=== PATIENT | male | born 1945 | race Caucasian/White ===

== ENCOUNTER 2016-11-23 17:25 | Inpatient (IN) | payer OTHER ==
[~2016-11-23] VITALS: Ht 182.9 cm; Wt 97.0 kg
[2016-11-23 17:37] VITALS: Ht 182.9 cm; Wt 97.0 kg
[2016-11-23] MEDS ORDERED: ACETAMINOPHEN 325 MG TAB PO STA (18:09)
[2016-11-23] MEDS ORDERED: SODIUM CHLORIDE 0.9% 1L BAG IV* STA (18:09)
[2016-11-23] MEDS ORDERED: PIPER-TAZO 3.375 GM IV (PMX) 100 ML IVPB STA (18:09)
[2016-11-23] MEDS ORDERED: VANCOMYCIN 1 GM (PMX) 250 ML IVPB ONE (18:30)
[2016-11-23 18:55] LABS: BASOPHIL # 0.1 10^3/ul (0.0-0.1); BASOPHILS % 0.5 % (0.0-2.0); EOSINOPHILS % 0.1 % (0.0-7.0); HEMATOCRIT 37.8 % (42.0-52.0); HEMOGLOBIN 11.6 g/dl (14.0-18.0); LYMPHOCYTES # 0.8 10^3/ul (0.8-2.9); LYMPHOCYTES % 7.7 % (15.0-51.0); MEAN CORPUSCULAR HEMOGLOBIN 23.6 pg (29.0-33.0); MEAN CORPUSCULAR HGB CONC 30.7 g/dl (32.0-37.0); MEAN CORPUSCULAR VOLUME 76.8 fl (82.0-101.0); MEAN PLATELET VOLUME 9.4 fl (7.4-10.4); MONOCYTE # 0.7 10^3/ul (0.3-0.9); MONOCYTES % 6.4 % (0.0-11.0); NEUTROPHIL # 8.8 10^3/ul (1.6-7.5); NEUTROPHILS % 84.7 % (39.0-77.0); PLATELET COUNT 224 10^3/UL (140-415); RED BLOOD COUNT 4.92 10^6/ul (4.70-6.10); RED CELL DISTRIBUTION WIDTH 15.5 % (11.5-14.5); WHITE BLOOD COUNT 10.4 10^3/ul (4.8-10.8)
--- NOTE | 2016-11-23 18:56 | ERA ---
ER Documentation Chief Complaint Date/Time DATE: 11/23/16 TIME: 18:53 Chief Complaint Complains of a fever x 3 days HPI Patient is a 71-year-old male with HIV who presents with a facial infection. The patient has a face and nose infection. Started a few days ago but was worse today. He went to his infectious disease doctor Dr. Jacobs at the [facility] today and she was concerned about the infection and wanted him admitted to the hospital. The patient had a fever of 101. The patient has pain with palpation of his nose. The patient was given a penicillin shot in the office by Dr. Jacobs. she was requesting a CT scan of the face to rule out abscess or HIV lymphoma. ROS All systems reviewed and are negative except as per history of present illness. Allergies Allergies: Coded Allergies: No Known Allergy (Unverified , 11/23/16) PMhx/Soc Anesthesia Reaction: No Hx Neurological Disorder: No Hx Respiratory Disorders: Yes (COPD) Hx Cardiac Disorders: No Hx Psychiatric Problems: No Hx Miscellaneous Medical Probl: Yes (Hx of resolved liver failure, HIV T-Cell count 470) Hx Alcohol Use: No Hx Substance Use: No Hx Tobacco Use: No Smoking Status: Unknown if ever smoked FmHx Family History: No diabetes Physical Exam Vitals Vital Signs Date Time Temp Pulse Resp B/P Pulse Ox O2 Delivery O2 Flow Rate FiO2 11/23/16 17:37 101.0 97 20 133/67 97 Physical Exam Const: Facial cellulitis Head: Atraumatic Eyes: Normal Conjunctiva ENT: Swelling of the nose with induration consistent with cellulitis Neck: Full range of motion..~ No meningismus. Resp: Clear to auscultation bilaterally Cardio: Regular rate and rhythm, no murmurs Abd: Soft, non tender, non distended. Normal bowel sounds Skin: Nasal and facial cellulitis Back: No midline or flank tenderness Ext: No cyanosis, or edema Neur: Awake and alert Psych: Normal Mood and Affect Results 24 hrs Current Medications Medications (Trade) Dose Ordered Sig/Fátima Route PRN Reason Start Time Stop Time Status Last Admin Dose Admin Sodium Chloride (NS) 3,010 ml BOLUS OVER 2 HOURS STAT IV* 11/23/16 18:09 11/23/16 18:12 DC 11/23/16 18:27 Acetaminophen 650 mg 650 mg ONCE STAT PO 8/11/17 18:09 11/23/16 18:12 DC 11/23/16 18:28 Vancomycin HCl 250 ml @ 125 mls/hr ONCE ONCE IVPB 11/23/16 18:30 11/23/16 20:29 Piperacillin Sod/ Tazobactam Sod (Zosyn 3.375gm/ 100 ml (Pmx)) 100 ml @ 200 mls/hr ONCE STAT IVPB 11/23/16 18:09 11/23/16 18:38 DC 11/23/16 18:37 Ondansetron HCl (Zofran Inj) 4 mg BRIDGE ORDER PRN IV NAUSEA AND/OR VOMITING 11/23/16 19:00 11/24/16 18:59 Acetaminophen (Tylenol Tab) 650 mg ER BRIDGE PRN PO MILD PAIN/FEVER 11/23/16 19:00 11/24/16 18:59 Procedures/MDM CT scan of the face is pending at this time. EKG pending at this time. Patient is a 71-year-old male who presents with what appears to be an acute facial cellulitis with nasal cellulitis. The patient will have a CT scan of the face to rule out abscess. The patient is febrile and tachycardic and will require IV antibiotics especially given his age and HIV status. The patient was given vancomycin and Zosyn empirically. The patient will be given a 30 mm/ kg fluid bolus. At this point I doubt true sepsis. I spoke with Dr. Diamond from the panel team for admission. Departure Diagnosis: Primary Impression: Facial cellulitis Additional Impression: Fever Qualified Code: R50.9 - Fever, unspecified fever cause Condition: SABRINA Euceda MD Nov 23, 2016 18:56
[2016-11-23] MEDS ORDERED: ACETAMINOPHEN 325 MG TAB PO PRN ×2 (19:00→20:30)
[2016-11-23] MEDS ORDERED: ONDANSETRON 4 MG INJ IV PRN ×2 (19:00→20:30)
[2016-11-23 19:03] LABS: ADD UMIC YES; UR ASCORBIC ACID NEGATIVE (NEGATIVE); UR BILIRUBIN (Dip) NEGATIVE (NEGATIVE); UR BLOOD (Dip) NEGATIVE (NEGATIVE); UR CLARITY SLIGHTLY CLOUDY (CLEAR); UR COLOR AMBER (YELLOW); UR GLUCOSE (Dip) NEGATIVE (NEGATIVE); UR KETONES (Dip) NEGATIVE (NEGATIVE); UR LEUKOCYTE ESTERASE (Dip) NEGATIVE Leu/ul (NEGATIVE); UR MUCUS MANY /HPF (NONE SEEN); UR NITRITE (Dip) NEGATIVE (NEGATIVE); UR RBC 1 /HPF (0-5); UR SPECIFIC GRAVITY (Dip) 1.024 (1.003-1.030); UR TOTAL PROTEIN (Dip) 1+ mg/dl (NEGATIVE); UR UROBILINOGEN (Dip) 1+ mg/dL (NEGATIVE)
[2016-11-23 19:16] LABS: INR 1.1; PROTIME 14.2 Sec (12.2-14.2); PT RATIO 1.1
[2016-11-23 19:21] LABS: ALANINE AMINOTRANSFERASE 29 IU/L (13-69); ALBUMIN 4.5 g/dl (3.3-4.9); ALKALINE PHOSPHATASE 58 IU/L (42-121); ANION GAP 12 (8-16); ASPARTATE AMINO TRANSFERASE 26 IU/L (15-46); BILIRUBIN,INDIRECT 0.8 mg/dl (0-1.1); BILIRUBIN,TOTAL 0.8 mg/dl (0.2-1.3); BLOOD UREA NITROGEN 13 mg/dl (7-20); CALCIUM 9.7 mg/dl (8.4-10.2); CARBON DIOXIDE 27 mmol/L (21-31); CHLORIDE 100 mmol/L (97-110); GLUCOSE 93 mg/dl (70-220); POTASSIUM 4.4 mmol/L (3.5-5.1); SODIUM 135 mmol/L (135-144); TOTAL PROTEIN 7.7 g/dl (6.1-8.1)
[2016-11-23 19:24] VITALS: PULSE 91
[2016-11-23] MEDS ORDERED: IBUPROFEN 600 MG TAB PO ONE (19:30)
[2016-11-23 19:39] LABS: TROPONIN-I < 0.012 ng/ml (0.00-0.12)
[2016-11-23] MEDS ORDERED: SOD CHLORIDE 0.9% 100 ML ONE (20:01)
[2016-11-23] MEDS ORDERED: IOHEXOL 300MG/ML 150 ML BTL ONE (20:01)
[2016-11-23] MEDS ORDERED: LORA10TA3 PO (20:21)
[2016-11-23] MEDS ORDERED: BUPR300T48 PO (20:21)
[2016-11-23] MEDS ORDERED: ASPI-664 PO (20:22)
[2016-11-23] MEDS ORDERED: EMTR1TAB11 PO (20:22)
[2016-11-23] MEDS ORDERED: RALT400T4 PO (20:29)
[2016-11-23] MEDS ORDERED: morphine 2 MG INJ IV PRN (20:30)
[2016-11-23] MEDS ORDERED: BISACODYL (EC) 5 MG TAB PO PRN (20:30)
[2016-11-23] MEDS ORDERED: HYDROCODONE/APAP (5/325) TAB PO PRN (20:30)
[2016-11-23] MEDS ORDERED: NACL 0.9% 3 ML SYG IV SCH (20:30)
[2016-11-23] MEDS ORDERED: DOCUSATE SODIUM 100 MG CAP PO PRN (20:30)
[2016-11-23] MEDS ORDERED: VANCOMYCIN IV PER PHARMACY XX SCH (20:30)
[2016-11-23] MEDS ORDERED: CALC600T11 PO (20:32)
[2016-11-23] MEDS ORDERED: CALCIUM PO (20:33)
[2016-11-23 20:40] VITALS: TEMP 99.3
--- NOTE | 2016-11-23 21:02 | RADRPT ---
PROCEDURE: CT scan facial bones with contrast CLINICAL INDICATION: Facial pain and swelling. History of oral surgery and HIV. TECHNIQUE: A CT of the facial bones was performed with intravenous contrast. Coronal and sagittal reformats were generated. 80 cc intravenous Omnipaque 300 were administered during the examination w ithout complication. CTDIvol: 57.38 mGy. DLP: 1133.28 mGy-cm. One or more of the following dose reduction techniques were used: - Automated exposure control. - Adjustment of the mA and/or kV according to patient size. - Use of iterative reconstruction technique. COMPARISON: None available FINDINGS: There is diffuse subcutaneous fat infiltration and swelling along both sides of the face. No rim en hancing fluid collection is identified to suggest the presence of an abscess. The patient is nearly edentulous, with no periapical lucencies seen around the roots of the remaining maxillary dentition . There is no facial fracture. The intraorbital structures are normal. There is mucosal thickenin g and a fluid level in the left maxillary sinus. Osseous wall thickening is also noted along the lef t maxillary sinus. The nasal cavity is clear. No acute intracranial pathology is visualized. IMPRESSION: 1. Diffuse subcutaneous fat infiltration and swelling along both sides of the face. This is nonspe cific but could represent cellulitis or possibly an allergic reaction. No abscess is identified. 2. No CT evidence of an odontogenic infection or orbital cellulitis. 3. Fluid level in the left maxillary sinus, possibly representing acute sinusitis. There is also l eft maxillary sinus osseous wall thickening, indicative of chronic sinusitis. RPTAT: HTAR .George Castelan MD, Date Time Electronically viewed and signed by .George Castelan MD, MD on 11/23/2016 21:02 .R/
[2016-11-23] MEDS: FAMOTIDINE 20 MG TAB PO SCH (21:30)
[2016-11-23 23:27] VITALS: BP 114/70; RESP 18
[2016-11-24] MEDS: VANCOMYCIN 1.25 GM in SOD CHLORIDE 0.9% 250 ML IVPB SCH ×2 (03:26→15:00)
[2016-11-24 04:05] VITALS: BP 104/53; RESP 18
--- NOTE | 2016-11-24 04:05 | HP ---
Date/Time of Note Date/Time of Note DATE: 11/24/16 TIME: 03:53 Assessment/Plan VTE Prophylaxis VTE Prophylaxis Intervention: SCD's Assessment/Plan Chief Complaint/Hosp Course This is a 71-year-old male being admitted to the [facility] floor for: #1 facial cellulitis: CT scan shows:Diffuse subcutaneous fat infiltration and swelling along both sides of the face. This is nonspecific but could represent cellulitis or possibly an allergic reaction. No abscess is identified. At the current time we will treat with IV vancomycin and Zosyn. Will obtain ID consult. Patient did present with a fever. Tylenol for fevers #2 Cough: Lungs appear clear on examination. Will order a chest x-ray to further evaluate. He is already on antibiotics as per #1. We will continue to monitor this. #3 normocytic anemia: This could be secondary to anemia of chronic disease patient is HIV positive he also had a history of basal carcinoma. Will order iron studies. #4 HIV positive: We will check a CD4 count and HIV viral load. Will continue patient's home medications. Will consult ID. #5 anxiety: We will continue bupropion. #6 Fluid levels in the maxillary sinus: Seen on CAT scan this could represent acute sinusitis. Patient does have symptoms of cough, currently is already on Vanco and Zosyn. Will continue to follow this and consult ID. DVT and GI prophylaxis: SCD, acid santi Further treatment will be implemented as per the clinical course Problems: HPI/ROS Admit Date/Time Admit Date/Time Nov 23, 2016 at 18:33 Hx of Present Illness Chief complaint: Facial infection This is a 71-year-old male with HIV who presents with a facial infection. The patient has a face and nose infection. Started a few days ago but was worse today. He went to his infectious disease doctor Dr. Jacobs at the [facility] today and she was concerned about the infection and wanted him admitted to the hospital. The patient had a fever of 101. The patient has pain with palpation of his nose. The patient was given a penicillin shot in the office by Dr. Jacobs. she was requesting a CT scan of the face to rule out abscess or HIV lymphoma. Patient denies any nasal drainage at this time. He is had multiple surgeries to his his nose secondary to him having basal cell cancer. Denies any bleeding. He does report that he has had a cough for a couple of days as well. Denies any sputum. Denies any chest pain Allergies: NKDA Medications: See JUN ROS Const: As per HPI Eyes : No pain discharge or redness or change in visual acuity ENT: As per HPI Respiratory: As per HPI Cardiovascular: No chest pain, palpitation, PND, or edema GI : no change in appetite, abdominal pain, nausea, vomiting, diarrhea, constipation, or change in the color his stool Genitourinary: No dysuria, hematuria, flank pain , discharge or CVA tenderness Musculoskeletal: No joint pain, back pain, neck pain, restricted range of motion in neck or joints Skin: No rash, bruising or hives Neuro: No headache, dizziness, syncope, seizure, focal weakness Endocrine: No polyuria, polydipsia, temperature intolerance Psych: No hallucination, depression, anxiety or suicidal ideation PMH/Family/Social Past Medical History HIV positive, history of basal cell cancer of the nose, COPD Past Surgical History Multiple surgeries of the nose for basal cell treatment Family History Significant Family History: no pertinent family hx Social History Sexual orientation: Homosexual, sexually active with multiple partners Alcohol Use: none Smoking Status: Never smoker Drug Use: none Exam/Review of Systems Vital Signs Vitals Vital Signs Date Time Temp Pulse Resp B/P Pulse Ox O2 Delivery O2 Flow Rate FiO2 11/23/16 23:27 98.6 85 18 114/70 94 11/23/16 19:24 Room Air Intake and Output 11/23/16 11/23/16 11/24/16 15:00 23:00 07:00 Intake Total 100 ml Balance 100 ml Exam Exam General: Patient is well-developed male lying in bed in no acute distress HEENT: External swelling around the nose, erythema noted, palpable tenderness to palpation of the right side of the nose Neck: Supple with full range of motion. No rigidity or meningismus Chest: Nontender Lungs: Dry cough on examination, lungs clear to auscultation bilaterally, no rales or wheezes Heart: Normal S1-S2, Regular rhythm and rate. No murmur, S3, or S4 Abdomen: Soft , nontender, nondistended , bowel sounds are present. No guarding no rebound tenderness , No masses or organomegaly. No costovertebral temporal angle mass Extremities: Normal to inspection, no edema no cyanosis Neurologic: Normal mental status, speech normal, cranial nerves II through XII are intact, motor and sensory are intact, no focal weakness Skin: Erythema and swelling of the nose extending to parts of the face Additional Comments PROCEDURE: CT scan facial bones with contrast CLINICAL INDICATION: Facial pain and swelling. History of oral surgery and HIV. TECHNIQUE: A CT of the facial bones was performed with intravenous contrast. Coronal and sagittal reformats were generated. 80 cc intravenous Omnipaque 300 were administered during the examination without complication. CTDIvol: 57.38 mGy. DLP: 1133.28 mGy-cm. One or more of the following dose reduction techniques were used: - Automated exposure control. - Adjustment of the mA and/or kV according to patient size. - Use of iterative reconstruction technique. COMPARISON: None available FINDINGS: There is diffuse subcutaneous fat infiltration and swelling along both sides of the face. No rim enhancing fluid collection is identified to suggest the presence of an abscess. The patient is nearly edentulous, with no periapical lucencies seen around the roots of the remaining maxillary dentition. There is no facial fracture. The intraorbital structures are normal. There is mucosal thickening and a fluid level in the left maxillary sinus. Osseous wall thickening is also noted along the left maxillary sinus. The nasal cavity is clear. No acute intracranial pathology is visualized. IMPRESSION: 1. Diffuse subcutaneous fat infiltration and swelling along both sides of the face. This is nonspecific but could represent cellulitis or possibly an allergic reaction. No abscess is identified. 2. No CT evidence of an odontogenic infection or orbital cellulitis. 3. Fluid level in the left maxillary sinus, possibly representing acute sinusitis. There is also left maxillary sinus osseous wall thickening, indicative of chronic sinusitis. Labs Result Diagram: 11/23/16 1823 11/23/16 1823 Medications Medications Current Medications Ondansetron HCl (Zofran Inj) 4 mg Q6H PRN IV NAUSEA AND/OR VOMITING; Start 03/01 at 20:30 Acetaminophen (Tylenol Tab) 650 mg Q6H PRN PO PAIN LEVEL 1-3 OR FEVER; Start at 20:30 Acetaminophen/ Hydrocodone Bitart ([place] (5/325)) 1 tab Q6H PRN PO MODERATE PAIN LEVEL 4-6; Start 11/23/16 at 20:30 Morphine Sulfate (morphine) 2 mg Q4H PRN IV SEVERE PAIN LEVEL 7-10; Start 11/23 at 20:30 Docusate Sodium (Colace) 100 mg Q12H PRN PO CONSTIPATION; Start 11/23/16 at 20: 30 Bisacodyl (Dulcolax) 5 mg DAILY PRN PO CONSTIPATION; Start 11/23/16 at 20:30 Famotidine 20 mg 20 mg Q12 PO Last administered on 11/23/16 21:30; Admin Dose 20 MG; Start 11/23/16 at 21:00 Piperacillin Sod/ Tazobactam Sod 100 ml @ 200 mls/hr Q8 IVPB ; Start 11/24/16 at 06:00 Vancomycin HCl/ Sodium Chloride (Vancocin/NS) 250 ml @ 83.333 mls/ hr Q12H IVPB Last administered on 11/24/16 03:26; Admin Dose 83.333 MLS/HR; Start 03/31 at 03:00 SUSANNE LEONARD Nov 24, 2016 04:04
[2016-11-24 05:58] LABS: BASOPHIL # 0.1 10^3/ul (0.0-0.1); BASOPHILS % 0.7 % (0.0-2.0); EOSINOPHILS # 0.1 10^3/ul (0.0-0.5); EOSINOPHILS % 1.1 % (0.0-7.0); HEMATOCRIT 35.6 % (42.0-52.0); HEMOGLOBIN 10.5 g/dl (14.0-18.0); LYMPHOCYTES # 0.7 10^3/ul (0.8-2.9); LYMPHOCYTES % 10.1 % (15.0-51.0); MEAN CORPUSCULAR HEMOGLOBIN 23.3 pg (29.0-33.0); MEAN CORPUSCULAR HGB CONC 29.5 g/dl (32.0-37.0); MEAN CORPUSCULAR VOLUME 79.1 fl (82.0-101.0); MEAN PLATELET VOLUME 9.8 fl (7.4-10.4); MONOCYTE # 0.6 10^3/ul (0.3-0.9); MONOCYTES % 7.9 % (0.0-11.0); NEUTROPHIL # 5.8 10^3/ul (1.6-7.5); NEUTROPHILS % 79.6 % (39.0-77.0); PLATELET COUNT 180 10^3/UL (140-415); RED CELL DISTRIBUTION WIDTH 15.8 % (11.5-14.5); WHITE BLOOD COUNT 7.2 10^3/ul (4.8-10.8)
[2016-11-24] MEDS ORDERED: PIPER-TAZO 3.375 GM IV (PMX) 100 ML IVPB SCH (06:00)
[2016-11-24] MEDS: DIPHENHYDRAMINE 50 MG CAP PO PRN ×2 (06:07→18:31)
[2016-11-24 06:28] LABS: ALBUMIN 3.5 g/dl (3.3-4.9); ALBUMIN/GLOBULIN RATIO 1.25; BILIRUBIN,INDIRECT 0.4 mg/dl (0-1.1); BILIRUBIN,TOTAL 0.4 mg/dl (0.2-1.3); CALCIUM 8.7 mg/dl (8.4-10.2); CHOL/HDL RATIO 5.2 RATIO; CREATININE 1.01 mg/dl (0.61-1.24); MAGNESIUM 2.1 mg/dl (1.7-2.5); POTASSIUM 4.7 mmol/L (3.5-5.1); TOTAL PROTEIN 6.3 g/dl (6.1-8.1)
[2016-11-24 07:54] LABS: IRON 30 ug/dl (35-150)
[2016-11-24 08:03] LABS: TOTAL IRON BINDING CAPACITY 310 ug/dl (241-421)
[2016-11-24] MEDS: ASPIRIN (EC) 81 MG TAB PO SCH (08:29)
[2016-11-24] MEDS: FAMOTIDINE 20 MG TAB PO SCH ×2 (08:29→20:26)
[2016-11-24] MEDS: LORATADINE 10 MG TAB PO SCH (08:29)
[2016-11-24] MEDS: BUPROPION (XL) 150 MG TAB PO SCH (08:30)
[2016-11-24] MEDS: EMTRICITABINE/TENOFOVIR TAB PO SCH (08:30)
[2016-11-24 08:42] VITALS: BP 115/64; RESP 20
--- NOTE | 2016-11-24 08:59 | CONS ---
Date/Time of Note Date/Time of Note DATE: 11/24/16 TIME: 08:58 Consultation Date/Type/Reason Admit Date/Time Nov 23, 2016 at 18:33 Date of Consultation: Nov 24, 2016 Type of Consultation: ID Reason for Consultation Antibiotic management Social History Alcohol Use: none Smoking Status: Never smoker Drug Use: none Exam/Review of Systems Vital Signs Vitals Vital Signs Date Time Temp Pulse Resp B/P Pulse Ox O2 Delivery O2 Flow Rate FiO2 11/24/16 08:42 99.1 96 20 115/64 95 11/23/16 19:24 Room Air Intake and Output 11/23/16 11/23/16 11/24/16 15:00 23:00 07:00 Intake Total 100 ml 850 ml Balance 100 ml 850 ml Results Result Diagram: 11/24/16 0445 11/24/16 0445 Results 24 hrs Laboratory Tests Test 11/23/16 18:23 11/23/16 18:35 11/23/16 20:50 11/23/16 23:54 White Blood Count 10.4 Red Blood Count 4.92 Hemoglobin 11.6 L Hematocrit 37.8 L Mean Corpuscular Volume 76.8 L Mean Corpuscular Hemoglobin 23.6 L Mean Corpuscular Hemoglobin Concent 30.7 L Red Cell Distribution Width 15.5 H Platelet Count 224 Mean Platelet Volume 9.4 Neutrophils % 84.7 H Lymphocytes % 7.7 L Monocytes % 6.4 Eosinophils % 0.1 Basophils % 0.5 Nucleated Red Blood Cells % 0.0 Neutrophils # 8.8 H Lymphocytes # 0.8 Monocytes # 0.7 Eosinophils # 0.0 Basophils # 0.1 Nucleated Red Blood Cells # 0.0 Prothrombin Time 14.2 Prothrombin Time Ratio 1.1 INR International Normalized Ratio 1.10 Activated Partial Thromboplast Time 32.0 Sodium Level 135 Potassium Level 4.4 Chloride Level 100 Carbon Dioxide Level 27 Anion Gap 12 Blood Urea Nitrogen 13 Creatinine 1.10 Glucose Level 93 Lactic Acid Level 1.2 0.9 1.0 Calcium Level 9.7 Total Bilirubin 0.8 Direct Bilirubin 0.00 Indirect Bilirubin 0.8 Aspartate Amino Transf (AST/SGOT) 26 Alanine Aminotransferase (ALT/SGPT) 29 Alkaline Phosphatase 58 Troponin I < 0.012 Total Protein 7.7 Albumin 4.5 Globulin 3.20 Albumin/Globulin Ratio 1.40 Urine Color AZALIA Urine Clarity SLIGHTLY CLOUDY A Urine pH 6.0 Urine Specific [place] 1.024 Urine Ketones NEGATIVE Urine Nitrite NEGATIVE Urine Bilirubin NEGATIVE Urine Urobilinogen 1+ H Urine Leukocyte Esterase NEGATIVE Urine Microscopic RBC 1 Urine Microscopic WBC 3 Urine Mucus MANY A Urine Hemoglobin NEGATIVE Urine Glucose NEGATIVE Urine Total Protein 1+ H Test 11/24/16 04:45 White Blood Count 7.2 # Red Blood Count 4.50 L Hemoglobin 10.5 L Hematocrit 35.6 L Mean Corpuscular Volume 79.1 L Mean Corpuscular Hemoglobin 23.3 L Mean Corpuscular Hemoglobin Concent 29.5 L Red Cell Distribution Width 15.8 H Platelet Count 180 Mean Platelet Volume 9.8 Neutrophils % 79.6 H Lymphocytes % 10.1 L Monocytes % 7.9 Eosinophils % 1.1 Basophils % 0.7 Nucleated Red Blood Cells % 0.0 Neutrophils # 5.8 Lymphocytes # 0.7 L Monocytes # 0.6 Eosinophils # 0.1 Basophils # 0.1 Nucleated Red Blood Cells # 0.0 Sodium Level 143 Potassium Level 4.7 Chloride Level 103 Carbon Dioxide Level 28 Anion Gap 17 H Blood Urea Nitrogen 14 Creatinine 1.01 Glucose Level 86 Hemoglobin A1c 5.3 Calcium Level 8.7 Magnesium Level 2.1 Iron Level 30 L Total Iron Binding Capacity 310 Percent Iron Saturation 10 L Total Bilirubin 0.4 Direct Bilirubin 0.00 Indirect Bilirubin 0.4 Aspartate Amino Transf (AST/SGOT) 19 Alanine Aminotransferase (ALT/SGPT) 27 Alkaline Phosphatase 48 Total Protein 6.3 # Albumin 3.5 # Globulin 2.80 Albumin/Globulin Ratio 1.25 Triglycerides Level 84 Cholesterol Level 142 LDL Cholesterol, Calculated 98 HDL Cholesterol 27 L Cholesterol/HDL Ratio 5.2 Thyroid Stimulating Hormone (TSH) 1.000 Medications Medications Current Medications Ondansetron HCl (Zofran Inj) 4 mg Q6H PRN IV NAUSEA AND/OR VOMITING; Start 03/01 at 20:30 Acetaminophen (Tylenol Tab) 650 mg Q6H PRN PO PAIN LEVEL 1-3 OR FEVER; Start at 20:30 Acetaminophen/ Hydrocodone Bitart ([place] (5/325)) 1 tab Q6H PRN PO MODERATE PAIN LEVEL 4-6; Start 11/23/16 at 20:30 Morphine Sulfate (morphine) 2 mg Q4H PRN IV SEVERE PAIN LEVEL 7-10; Start 11/23 at 20:30 Docusate Sodium (Colace) 100 mg Q12H PRN PO CONSTIPATION; Start 11/23/16 at 20: 30 Bisacodyl (Dulcolax) 5 mg DAILY PRN PO CONSTIPATION; Start 11/23/16 at 20:30 Famotidine 20 mg 20 mg Q12 PO Last administered on 11/24/16 08:29; Admin Dose 20 MG; Start 11/23/16 at 21:00 Vancomycin HCl/ Sodium Chloride (Vancocin/NS) 250 ml @ 83.333 mls/ hr Q12H IVPB Last administered on 11/24/16 03:26; Admin Dose 83.333 MLS/HR; Start 03/31 at 03:00 Aspirin (Halfprin) 81 mg DAILY PO Last administered on 11/24/16 08:29; Admin Dose 81 MG; Start 11/24/16 at 09:00 Bupropion HCl (Wellbutrin Xl) 300 mg DAILY PO Last administered on 11/24/16 08 :30; Admin Dose 300 MG; Start 11/24/16 at 09:00 Loratadine (Claritin) 10 mg DAILY PO Last administered on 11/24/16 08:29; Admin Dose 10 MG; Start 11/24/16 at 09:00 Emtricitabine/ Tenofovir (Truvada) 1 tab DAILY PO Last administered on 08:30; Admin Dose 1 TAB; Start 11/24/16 at 09:00 Miscellaneous Information 1 tab BID XX ; Start 11/24/16 at 09:00; Status UNV Diphenhydramine HCl 50 mg 50 mg Q6H PRN PO ITCHING Last administered on 06:07; Admin Dose 50 MG; Start 11/24/16 at 04:30 Cefazolin Sodium (Ancef 1 Gm/50 ml (Pmx)) 50 ml @ 100 mls/hr Q6 IVPB ; Start at 12:00; Status UNV LUCILA DAVIES MD Nov 24, 2016 08:59
[2016-11-24] MEDS: CEFAZOLIN 1 GM/50 ML (PMX) 50 ML IVPB SCH ×2 (11:06→20:26)
[2016-11-24] MEDS: RALTEGRAVIR 400 MG TAB PO SCH ×2 (11:06→20:26)
--- NOTE | 2016-11-24 13:43 | CONS ---
DATE OF ADMISSION: 11/23/2016 DATE OF CONSULTATION: 11/24/2016 REASON FOR CONSULTATION: Antibiotic management. HISTORY OF PRESENT ILLNESS: Roland Fields is a 71-year-old male, who comes in with history of HIV and facial infection. This started a few days ago but got worse on 02/24/2017. He went to his infectious disease doctor, Dr. Jacobs, in [facility] and she was concerned about infection and sent him to the hospital. His temperature was 101. He is given a penicillin shot by Dr. Jacobs, and she was requesting CT scan of the face to rule out abscess or HIV lymphoma. He denies any nasal discharge. He has had multiple surgeries to his nose secondary to basal cell carcinoma. He denies any bleeding. He has had a cough for a few days. A CT scan showed diffuse subcutaneous fat infiltration and swelling along both sides of the face. This was nonspecific and could represent cellulitis or possibly an allergic reaction. The patient is on vancomycin and Zosyn. On admission his white count was 10.4, hemoglobin 11.6, hematocrit 37.8, platelet count 224,000. BUN 13 and creatinine was 1.10. PAST MEDICAL HISTORY: Positive for HIV and basal cell carcinoma of the nose, as well as COPD. FAMILY HISTORY: Noncontributory. SOCIAL HISTORY: He is [place]. He is sexually active with multiple partners. He does not smoke, drink, or abuse drugs. ALLERGIES: NONE TO PENICILLIN, SULFA, OR FOODS. MEDICATIONS: Per chart. REVIEW OF SYSTEMS: As per HPI. PHYSICAL EXAMINATION: GENERAL: Patient is a well-developed, well-nourished male, alert, responsive, in no acute distress. VITAL SIGNS: Stable. He is afebrile currently, his T-max is 101. SKIN: Without generalized rash. HEENT: Within normal limits. Except for his nose, which is erythematous and has some tenderness to palpation, especially on the right side of the nose. NECK: Supple. Lymph nodes nonpalpable. CHEST: Decreased breath sounds at the bases. HEART: Without murmur or gallop. ABDOMEN: Soft, nontender, without organosplenomegaly or masses. EXTREMITIES: Without cyanosis, clubbing, or edema. RECTAL: Exam is deferred. GENITALIA: Exam is deferred. NEUROLOGIC: No focal neurological abnormality. IMPRESSION AND PLAN: 1. The patient is human immunodeficiency virus positive. He also has cellulitis of the nose. He is on appropriate antibiotics. His HIV medications. We note that he is on Truvada and he is on raltegravir or Isentress one tablet twice daily. 2. His HIV, RNA by PCR, and CD4 count panels are also ordered, and he has had blood cultures and urine cultures. I concur with this regimen. I will dictate my findings to the hospitalist. Dictated By: Titi Madrigal MD JD/[email or web address]/dianna /Document#: [id number]
[2016-11-24 14:56] VITALS: BP 94/47; RESP 20
--- NOTE | 2016-11-24 17:37 | PN ---
Date/Time of Note Date/Time of Note DATE: 11/24/16 TIME: 17:33 Assessment/Plan VTE Prophylaxis VTE Prophylaxis Intervention: SCD's Assessment/Plan Assessment/Plan 71 yo M with HIV well controlled on HAART admitted for facial cellulitis. Imaging without evidence of abscess or underlying malignancy given diffuse erythema, looks like strep based infection. Pt denies any preceeding nodule, and there is no evidence of purulence PLAN empiric vanc/ancef MRSA swab to eval for colonization will likely stop vanc in AM if continues to improve consider changing to PO keflex in 1-2 days cont HAART Subjective 24 Hr Interval Summary Free Text/Dictation Pt reports he has been stable on his HAART regimen for some time. Regarding his facial cellulitis, reports that the degree of erythema has improved since admission and mild swelling appears to now be spreading to under both eyes Exam/Review of Systems Vital Signs Vitals Vital Signs Date Time Temp Pulse Resp B/P Pulse Ox O2 Delivery O2 Flow Rate FiO2 11/24/16 14:56 98.8 62 20 94/47 94 11/23/16 19:24 Room Air Intake and Output 11/23/16 11/23/16 11/24/16 15:00 23:00 07:00 Intake Total 100 ml 850 ml Balance 100 ml 850 ml Exam nad mild induration and mild erythema of nasal bridge and under eye area, no involvement above eyes or past distal aspect of pt's eyes bl no mrg lungs clear abd soft labs noted Results Result Diagram: 11/24/16 0445 11/24/16 0445 Results 24 hrs Laboratory Tests Test 11/23/16 18:23 11/23/16 18:35 11/23/16 20:50 11/23/16 23:54 White Blood Count 10.4 Red Blood Count 4.92 Hemoglobin 11.6 L Hematocrit 37.8 L Mean Corpuscular Volume 76.8 L Mean Corpuscular Hemoglobin 23.6 L Mean Corpuscular Hemoglobin Concent 30.7 L Red Cell Distribution Width 15.5 H Platelet Count 224 Mean Platelet Volume 9.4 Neutrophils % 84.7 H Lymphocytes % 7.7 L Monocytes % 6.4 Eosinophils % 0.1 Basophils % 0.5 Nucleated Red Blood Cells % 0.0 Neutrophils # 8.8 H Lymphocytes # 0.8 Monocytes # 0.7 Eosinophils # 0.0 Basophils # 0.1 Nucleated Red Blood Cells # 0.0 Prothrombin Time 14.2 Prothrombin Time Ratio 1.1 INR International Normalized Ratio 1.10 Activated Partial Thromboplast Time 32.0 Sodium Level 135 Potassium Level 4.4 Chloride Level 100 Carbon Dioxide Level 27 Anion Gap 12 Blood Urea Nitrogen 13 Creatinine 1.10 Glucose Level 93 Lactic Acid Level 1.2 0.9 1.0 Calcium Level 9.7 Total Bilirubin 0.8 Direct Bilirubin 0.00 Indirect Bilirubin 0.8 Aspartate Amino Transf (AST/SGOT) 26 Alanine Aminotransferase (ALT/SGPT) 29 Alkaline Phosphatase 58 Troponin I < 0.012 Total Protein 7.7 Albumin 4.5 Globulin 3.20 Albumin/Globulin Ratio 1.40 Urine Color [place]AL[place] Urine Clarity SLIGHTLY CLOUDY A Urine pH 6.0 Urine Specific [place] 1.024 Urine Ketones NEGATIVE Urine Nitrite NEGATIVE Urine Bilirubin NEGATIVE Urine Urobilinogen 1+ H Urine Leukocyte Esterase NEGATIVE Urine Microscopic RBC 1 Urine Microscopic WBC 3 Urine Mucus MANY A Urine Hemoglobin NEGATIVE Urine Glucose NEGATIVE Urine Total Protein 1+ H Test 11/24/16 04:45 White Blood Count 7.2 # Red Blood Count 4.50 L Hemoglobin 10.5 L Hematocrit 35.6 L Mean Corpuscular Volume 79.1 L Mean Corpuscular Hemoglobin 23.3 L Mean Corpuscular Hemoglobin Concent 29.5 L Red Cell Distribution Width 15.8 H Platelet Count 180 Mean Platelet Volume 9.8 Neutrophils % 79.6 H Lymphocytes % 10.1 L Monocytes % 7.9 Eosinophils % 1.1 Basophils % 0.7 Nucleated Red Blood Cells % 0.0 Neutrophils # 5.8 Lymphocytes # 0.7 L Monocytes # 0.6 Eosinophils # 0.1 Basophils # 0.1 Nucleated Red Blood Cells # 0.0 Sodium Level 143 Potassium Level 4.7 Chloride Level 103 Carbon Dioxide Level 28 Anion Gap 17 H Blood Urea Nitrogen 14 Creatinine 1.01 Glucose Level 86 Hemoglobin A1c 5.3 Calcium Level 8.7 Magnesium Level 2.1 Iron Level 30 L Total Iron Binding Capacity 310 Percent Iron Saturation 10 L Total Bilirubin 0.4 Direct Bilirubin 0.00 Indirect Bilirubin 0.4 Aspartate Amino Transf (AST/SGOT) 19 Alanine Aminotransferase (ALT/SGPT) 27 Alkaline Phosphatase 48 Total Protein 6.3 # Albumin 3.5 # Globulin 2.80 Albumin/Globulin Ratio 1.25 Triglycerides Level 84 Cholesterol Level 142 LDL Cholesterol, Calculated 98 HDL Cholesterol 27 L Cholesterol/HDL Ratio 5.2 Thyroid Stimulating Hormone (TSH) 1.000 Medications Medications Current Medications Ondansetron HCl (Zofran Inj) 4 mg Q6H PRN IV NAUSEA AND/OR VOMITING; Start 03/01 at 20:30 Acetaminophen (Tylenol Tab) 650 mg Q6H PRN PO PAIN LEVEL 1-3 OR FEVER Last administered on 11/24/16 16:13; Admin Dose 650 MG; Start 11/23/16 at 20:30 Acetaminophen/ Hydrocodone Bitart ([place] (5/325)) 1 tab Q6H PRN PO MODERATE PAIN LEVEL 4-6; Start 11/23/16 at 20:30 Morphine Sulfate (morphine) 2 mg Q4H PRN IV SEVERE PAIN LEVEL 7-10; Start 11/23 at 20:30 Docusate Sodium (Colace) 100 mg Q12H PRN PO CONSTIPATION; Start 11/23/16 at 20: 30 Bisacodyl (Dulcolax) 5 mg DAILY PRN PO CONSTIPATION; Start 11/23/16 at 20:30 Famotidine 20 mg 20 mg Q12 PO Last administered on 11/24/16 08:29; Admin Dose 20 MG; Start 11/23/16 at 21:00 Vancomycin HCl/ Sodium Chloride (Vancocin/NS) 250 ml @ 83.333 mls/ hr Q12H IVPB Last administered on 11/24/16 15:00; Admin Dose 83.333 MLS/HR; Start 03/31 at 03:00 Aspirin (Halfprin) 81 mg DAILY PO Last administered on 11/24/16 08:29; Admin Dose 81 MG; Start 11/24/16 at 09:00 Bupropion HCl (Wellbutrin Xl) 300 mg DAILY PO Last administered on 11/24/16 08 :30; Admin Dose 300 MG; Start 11/24/16 at 09:00 Loratadine (Claritin) 10 mg DAILY PO Last administered on 11/24/16 08:29; Admin Dose 10 MG; Start 11/24/16 at 09:00 Emtricitabine/ Tenofovir (Truvada) 1 tab DAILY PO Last administered on 08:30; Admin Dose 1 TAB; Start 11/24/16 at 09:00 Miscellaneous Medication (Isentress) 400 mg BID PO Last administered on 11:06; Admin Dose 400 MG; Start 11/24/16 at 10:00 Diphenhydramine HCl 50 mg 50 mg Q6H PRN PO ITCHING Last administered on 06:07; Admin Dose 50 MG; Start 11/24/16 at 04:30 Cefazolin Sodium (Ancef 1 Gm/50 ml (Pmx)) 50 ml @ 100 mls/hr Q6 IVPB Last administered on 11/24/16 11:06; Admin Dose 100 MLS/HR; Start 11/24/16 at 12:00 Miscellaneous Information (*Rx Drug Level Order Reminder*) VANCOMYCIN TROUGH AT 1400 ONCE ONCE XX ; Start 11/25/16 at 14:00; Stop 11/25/16 at 14:01 ROBBY COLE MD Nov 24, 2016 17:36
[2016-11-24] MEDS: DIPHENHYDRAMINE 50 MG INJ IV PRN (18:39)
[2016-11-24 20:48] VITALS: BP 132/73; RESP 18
[2016-11-24] MEDS ORDERED: AMMONIUM LACTATE 12% 225 GM LOT TOP PRN (22:00)
[2016-11-24] MEDS ORDERED: HYDROCORTISONE 1% 28 GM CR TOP PRN (22:00)
[2016-11-25] MEDS: DIPHENHYDRAMINE 50 MG INJ IV PRN ×3 (00:45→20:39)
[2016-11-25] MEDS: CEFAZOLIN 1 GM/50 ML (PMX) 50 ML IVPB SCH ×5 (01:05→23:59)
--- NOTE | 2016-11-25 01:13 | RADRPT ---
PROCEDURE: XR Chest. CLINICAL INDICATION: Cough. Right lower rib pain TECHNIQUE: PA and lateral chest x-ray. COMPARISON: None. FINDINGS: The lungs are hyperexpanded. There is a paucity of lung markings in the upper lung zones. There is flattening of the hemidiaphragms. The lungs are otherwise clear. There is no evidence of pleural effusion. No pneumothorax identified. The cardiomediastinal silhouette is unremarkable. The osseous structures are unremarkable. The soft tissues are within normal limits. IMPRESSION: 1. No acute disease is seen in the chest. 2. Hyperexpanded lungs with flattening hemidiaphragms, suggesting changes of COPD. RPTAT: HLDM .Maxime Lujan MD, MD Date Time Electronically viewed and signed by .Maxime Lujan MD, on 11/25/2016 01:13 .M/
[2016-11-25 02:00] VITALS: BP 116/62; RESP 18
[2016-11-25] MEDS: VANCOMYCIN 1.25 GM in SOD CHLORIDE 0.9% 250 ML IVPB SCH ×2 (03:03→15:29)
[2016-11-25 06:32] LABS: CREATININE 0.95 mg/dl (0.61-1.24)
[2016-11-25 08:22] VITALS: BP 108/58; RESP 18
[2016-11-25] MEDS: BUPROPION (XL) 150 MG TAB PO SCH (09:11)
[2016-11-25] MEDS: LORATADINE 10 MG TAB PO SCH (09:12)
[2016-11-25] MEDS: EMTRICITABINE/TENOFOVIR TAB PO SCH (09:12)
[2016-11-25] MEDS: ASPIRIN (EC) 81 MG TAB PO SCH (09:12)
[2016-11-25] MEDS: RALTEGRAVIR 400 MG TAB PO SCH ×2 (09:12→20:39)
[2016-11-25] MEDS: FAMOTIDINE 20 MG TAB PO SCH (09:12)
[2016-11-25 14:57] VITALS: BP 124/58; RESP 18
--- NOTE | 2016-11-25 17:41 | PN ---
Date/Time of Note Date/Time of Note DATE: 11/25/16 TIME: 17:38 Assessment/Plan VTE Prophylaxis VTE Prophylaxis Intervention: SCD's Lines/Catheters IV Catheter Type (from Nrsg): Peripheral IV Assessment/Plan Assessment/Plan Assessment/Plan 71 yo M with HIV well controlled on HAART admitted for facial cellulitis. Imaging without evidence of abscess or underlying malignancy given diffuse erythema, looks like strep based infection. Pt denies any preceding nodule, and there is no evidence of purulence PLAN empiric vanc/ancef MRSA swab to eval for colonization STOP VANC consider changing to PO keflex tomorrow cont HAART Subjective 24 Hr Interval Summary Free Text/Dictation facial erythema further improved Exam/Review of Systems Vital Signs Vitals Vital Signs Date Time Temp Pulse Resp B/P Pulse Ox O2 Delivery O2 Flow Rate FiO2 11/25/16 14:57 98.2 92 18 124/58 92 11/23/16 19:24 Room Air Intake and Output 11/24/16 11/24/16 11/25/16 15:00 23:00 07:00 Intake Total 50 ml 1340 ml 1300 ml Balance 50 ml 1340 ml 1300 ml Exam nad improved erythema over nose, upper cheeks no mrg lungs clear abd soft Results Result Diagram: 11/24/16 0445 11/25/16 0442 Results 24 hrs Laboratory Tests Test 11/25/16 04:42 11/25/16 14:00 Blood Urea Nitrogen 10 Creatinine 0.95 Vancomycin Level Trough 10.4 Medications Medications Current Medications Ondansetron HCl (Zofran Inj) 4 mg Q6H PRN IV NAUSEA AND/OR VOMITING; Start 03/01 at 20:30 Acetaminophen (Tylenol Tab) 650 mg Q6H PRN PO PAIN LEVEL 1-3 OR FEVER Last administered on 11/24/16t 16:13; Admin Dose 650 MG; Start 11/23/16 at 20:30 Acetaminophen/ Hydrocodone Bitart ([place] (5/325)) 1 tab Q6H PRN PO MODERATE PAIN LEVEL 4-6; Start 11/23/16 at 20:30 Morphine Sulfate (morphine) 2 mg Q4H PRN IV SEVERE PAIN LEVEL 7-10; Start 11/23 at 20:30 Docusate Sodium (Colace) 100 mg Q12H PRN PO CONSTIPATION; Start 11/23/16 at 20: 30 Bisacodyl (Dulcolax) 5 mg DAILY PRN PO CONSTIPATION; Start 11/23/16 at 20:30 Famotidine 20 mg 20 mg Q12 PO Last administered on 11/25/16 09:12; Admin Dose 20 MG; Start 11/23/16 at 21:00 Vancomycin HCl/ Sodium Chloride (Vancocin/NS) 250 ml @ 83.333 mls/ hr Q12H IVPB Last administered on 11/25/16 15:29; Admin Dose 83.333 MLS/HR; Start 03/31 at 03:00 Aspirin (Halfprin) 81 mg DAILY PO Last administered on 11/25/16 09:12; Admin Dose 81 MG; Start 11/24/16 at 09:00 Bupropion HCl (Wellbutrin Xl) 300 mg DAILY PO Last administered on 11/25/16 09 :11; Admin Dose 300 MG; Start 11/24/16 at 09:00 Loratadine (Claritin) 10 mg DAILY PO Last administered on 11/25/16 09:12; Admin Dose 10 MG; Start 11/24/16 at 09:00 Emtricitabine/ Tenofovir (Truvada) 1 tab DAILY PO Last administered on 09:12; Admin Dose 1 TAB; Start 11/24/16 at 09:00 Miscellaneous Medication 400 mg 400 mg BID PO Last administered on 11/25/16 09 :12; Admin Dose 400 MG; Start 11/24/16 at 10:00 Cefazolin Sodium (Ancef 1 Gm/50 ml (Pmx)) 50 ml @ 100 mls/hr Q6 IVPB Last administered on 11/25/16 11:09; Admin Dose 100 MLS/HR; Start 11/24/16 at 12:00 Diphenhydramine HCl (Benadryl) 50 mg Q6H PRN IV itching Last administered on 11:11; Admin Dose 50 MG; Start 11/24/16 at 19:00 Hydrocortisone (Hydrocortisone 1% Cr) 1 applic BID PRN TOP ITCHING Last administered on 11/25/16 00:45; Admin Dose 1 APPLIC; Start 11/24/16 at 22:00 Ammonium Lactate (Lac-Hydrin 12% Lotion) 1 applic TID PRN TOP ITCHING; Start at 22:00 ROBBY COLE MD Nov 25, 2016 17:41
--- NOTE | 2016-11-25 19:51 | PN ---
DATE: 11/25/2016 SUBJECTIVE DATA: No acute changes, patient is alert, feels better, looks comfortable, no fevers. Microbiology: Blood cultures remain negative. Antimicrobials: Ancef, vancomycin. PHYSICAL EXAMINATION: GENERAL: Well developed, elderly white male, who is alert, in no distress. HEENT: Head atraumatic, normocephalic. Sclera anicteric. The patient has significant erythema on his nasal breech and around eyes, a little bit on the forehead and more on the right side of the face, per patient improved. Buccal mucosa pale and pink. NECK: Supple. CHEST: Chest rise symmetrical. Breath sounds clear. HEART: S1, S2. ABDOMEN: Soft. Bowel sounds present. EXTREMITIES: Without cyanosis, edema. ASSESSMENT: 1. Facial cellulitis, improving. 2. History of human immunodeficiency virus, controlled with antiretrovirals. 3. Anemia. PLAN: The patient remains stable. Cellulitis improving, continue present care, antibiotics, DUBOSE, await for clinical improvement. Dictated By: Lindsey Pizarro NP /jammie/rob /Document#: [id number] IESHA
[2016-11-25 20:37] VITALS: BP 122/67; RESP 18
--- NOTE | 2016-11-26 01:35 | RADRPT ---
PROCEDURE: XR ribs . CLINICAL INDICATION: Left rib pain. TECHNIQUE: AP and oblique views of the bilateral ribs were obtained. COMPARISON: Chest series dated 11/24/2016 FINDINGS: The bone mineralization is normal. There is no acute fracture or subluxation. The soft tissues are unremarkable. IMPRESSION: No acute fracture. RPTAT: [facility] Physician Ryan Date Time Electronically viewed and signed by Teresa Roth Physician on 11/26/2016 01:35 RS/
[2016-11-26 03:12] VITALS: BP 111/68; RESP 18
[2016-11-26] MEDS: CEFAZOLIN 1 GM/50 ML (PMX) 50 ML IVPB SCH ×2 (05:16→12:55)
[2016-11-26 09:03] VITALS: BP 115/65; RESP 20
[2016-11-26] MEDS: BUPROPION (XL) 150 MG TAB PO SCH (09:35)
[2016-11-26] MEDS: EMTRICITABINE/TENOFOVIR TAB PO SCH (09:35)
[2016-11-26] MEDS: ASPIRIN (EC) 81 MG TAB PO SCH (09:35)
[2016-11-26] MEDS: RALTEGRAVIR 400 MG TAB PO SCH (09:35)
[2016-11-26] MEDS: LORATADINE 10 MG TAB PO SCH (09:35)
[2016-11-26 14:54] VITALS: BP 111/72; RESP 20
[2016-11-26 14:59] LABS: LYMPHOCYTE - % CD4 (HELPER) 36 % (30-61); LYMPHOCYTE - %CD8 (SUPPRESSOR) 33 % (12-42); LYMPHOCYTE - ABSOLUTE CD4 315 cells/uL (490-1740); LYMPHOCYTE - ABSOLUTE CD8 286 cells/uL (180-1170)
--- NOTE | 2016-11-26 15:03 | PDOCDIS ---
Discharge Instructions CONDITION Patient Condition: Stable HOME CARE INSTRUCTIONS: Special Diet: Regular ACTIVITY: Activity Restrictions: Slowly Increase Activity FOLLOW UP/APPOINTMENTS Follow-up Plan Please take your medications as prescribed. Please follow-up with her primary care doctor in the clinic in the next 1 week. JARON HERRERA Nov 26, 2016 15:03
[2016-11-26] MEDS ORDERED: CEPH-443 PO (15:04)
--- NOTE | 2016-11-26 15:07 | DS ---
Date/Time of Note Date/Time of Note DATE: 11/26/16 TIME: 15:05 Discharge Summary Admission/Discharge Info Admit Date/Time Nov 23, 2016 at 18:33 Discharge Date/Time Discharge Diagnosis #1 facial cellulitis: Improved on antibiotics #2 Cough resolve #3 normocytic anemia: Likely microcytic-hemoglobin stable, monitor #4 HIV positive on HAART meds #5 anxiety: We will continue bupropion. #6 Fluid levels in the maxillary sinus: Seen on CAT scan this could represent acute sinusitis. Resolved Patient Condition: Stable Hospital Course 71-year-old male with HIV who presents with a facial infection. The patient has a face and nose infection. Started a few days ago but was worse today. He went to his infectious disease doctor Dr. Jacobs at the [facility] today and she was concerned about the infection and wanted him admitted to the hospital. The patient had a fever of 101 admission. The patient has pain with palpation of his nose. The patient was given a penicillin shot in the office by Dr. Jacobs. she was requesting a CT scan of the face to rule out abscess or HIV lymphoma. Patient denies any nasal drainage at this time. He is had multiple surgeries to his his nose secondary to him having basal cell cancer. Patient was admitted to [facility] floor, placed on antibiotics. Seen by infectious disease team who concurred. Over the course of his hospital stay his facial redness symptoms improved. He was able to ambulate, tolerated p.o. diet. He complained of some left rib pain, x-rays were negative for any signs of any rib fractures. He has been afebrile for at least the last 24 hours, will be discharged home today in improved condition. See below for full discharge medication list, including Keflex 500 mg 3 times daily for 5 more days to complete treatment. Home Meds Active Scripts Cephalexin* (Keflex*) 500 Mg Capsule, 500 MG PO Q8 for 5 Days, #15 CAP Prov:VERONICA HERRERAP Yaima. 11/26/16 Reported Medications [Calcium] No Conflict Check, 1 TAB PO DAILY 11/23/16 Raltegravir Potassium* (Isentress*) Unknown Strength Tablet, 1 TAB PO BID, TAB 11/23/16 Emtricitabine-Tenofovir* (Truvada*) Unknown Strength Tablet, 1 TAB PO DAILY, TAB 8/11/17 Aspirin* (Aspirin* EC) 81 Mg Tablet.dr, 81 MG PO DAILY, TAB 11/23/16 Bupropion Hcl* (Wellbutrin XL*) 300 Mg Tab.sr.24h, 300 MG PO DAILY, TAB.SA 11/23/16 Loratadine* (Loratadine*) 10 Mg Tablet, 10 MG PO DAILY, #30 TAB 11/23/16 Discontinued Reported Medications Calcium Carbonate* (Calcium Carbonate*) 600 MG Ca Tab, 1 TAB PO DAILY, TAB 11/23/16 Primary Care Provider JARON Nguyen Nov 26, 2016 15:07
--- NOTE | 2016-11-27 02:56 | PN ---
DATE: 11/26/2016 INFECTIOUS DISEASE PROGRESS NOTE SUBJECTIVE DATA: No acute changes overnight. No fevers. The patient is alert, feels better, looks comfortable. Denies pain /discomfort. ANTIMICROBIALS: The patient is on Ancef and vancomycin. OBJECTIVE DATA: GENERAL: Well-developed elderly white man who is alert in no distress. HEENT: Head atraumatic, normocephalic. Sclerae anicteric. Buccal mucosa pink. NECK: Supple. CHEST: Rise symmetrical. Breath sounds clear. HEART: S1, S2. ABDOMEN: Soft, bowel sounds present. EXTREMITIES: No cyanosis. SKIN: With resolving erythema and swelling of the face. ASSESSMENT: 1. Resolving facial cellulitis. 2. Human immunodeficiency virus disease, on appropriate regimen. PLAN: Remains stable. Overall improving. Anticipate discharge on oral Bactrim for 7 more days. May follow with Dr. Titi Madrigal in the office p.r.n. Discussed with patient at bedside. Dictated By: Jennifer Pizarro NP /jammie/sabine /Document#: [id number]
== END 2016-11-26 17:38 | disposition home or self-care (01) | DRG 977 ==
LOC: FTE 17:25 → PP2 18:33
PROVIDERS: ADMIT Internal Medicine; ATTEND Internal Medicine
DX: B20 Human immunodeficiency virus [HIV] disease (principal); L03.211 Cellulitis of face; J44.9 Chronic obstructive pulmonary disease, unspecified; D64.9 Anemia, unspecified; R05 Cough; F41.9 Anxiety disorder, unspecified; Z85.828 Personal history of other malignant neoplasm of skin; Z86.19 Personal history of other infectious and parasitic diseases
CPT/HCPCS: 36415; 70486; 71020; 71110; 80053; 80061; 80202; 81001; 82565; 83036; 83540; 83605; 83735; 84443; 84484; 84520; 85025; 85610; 85730; 86360; 87040; 87081; 87086; 87536; 93005; 96365; 96375; J0690; J1200; J2543; J3370; J7030; J7050; Q9967

== ENCOUNTER 2017-12-15 20:02 | Emergency (ER) | END 2017-12-15 22:15 | disposition home or self-care (01) ==